=== PATIENT | female | born 1975 | race Caucasian/White ===

== ENCOUNTER 2024-09-30 10:49 | Emergency (ER) | payer OTHER, SELFPAY ==
--- NOTE | ~2024-09-30 | CT_ITS ---
EXAMINATION: CT ABDOMEN AND PELVIS WITHOUT CONTRAST CLINICAL INFORMATION: Left lower quadrant pain and tenderness. COMPARISON: None available. TECHNIQUE: Multidetector volumetric imaging was performed from the superior aspect of the liver through the pubic symphysis. Sagittal and coronal reformatted images were obtained on the technologist's workstation. This CT examination was performed using dose optimization techniques as appropriate, variously including the following: *Automated exposure control *Adjustment of mA and/or kV according to patient size (this includes techniques or standardized protocols for targeted exams where dose is matched to indication/reason for exam; i.e. extremities or head) *Use of iterative reconstruction technique FINDINGS: LUNG BASES: The visualized lung bases are unremarkable. There is a small type I hiatus hernia. LIVER, GALLBLADDER, AND BILIARY TREE: The unenhanced liver is normal in size, shape, and attenuation. No biliary ductal dilatation is present. In segment 8, there is a 1.5 x 1.5 cm hypoattenuating lesion, indeterminate. Remainder of the liver appears normal. The gallbladder is unremarkable with no evidence of radiopaque gallstones, gallbladder wall thickening, or obvious pericholecystic inflammatory changes. PANCREAS: Unremarkable. SPLEEN: Unremarkable. ADRENAL GLANDS: Unremarkable. KIDNEYS AND URETERS: The kidneys are normal in size, shape, and attenuation. No hydronephrosis, hydroureter, or calculi seen. No perinephric stranding. BLADDER: Unremarkable. GASTROINTESTINAL TRACT: The stomach is decompressed. The duodenum is normal. A small bowel is normal in caliber and course. No evidence of appendicitis. The colon is normal in caliber and course without wall thickening or inflammation. The rectum is normal. ABDOMINAL WALL: No significant hernia is appreciated. LYMPH NODES: Normal. VASCULAR: Unremarkable. PELVIC VISCERA: An IUD is present within a normal-appearing uterus. There are no adnexal abnormalities. OSSEOUS STRUCTURES: There is a levoconvex thoracolumbar scoliosis. There is no suspicious lytic or blastic bone lesion. CT/CT abdomen pelvis wo IV con IMPRESSION: 1. There are no acute findings in the abdomen or pelvis. 2. There is an indeterminate 1.5 x 1.5 cm hypoattenuating liver lesion in segment 8, for which a dynamic CT or MRI is recommended for definitive characterization. 3. There is a small type I hiatus hernia. 4. Additional ancillary findings as discussed in the body of the report. Electronically signed by: Kennedy Salgado MD 09/30/2024 04:46 PM EDT RP
[2024-09-30 11:02] VITALS: BP 134/79; PULSE 67; RESP 18; TEMP 36.6; O2SAT 98; BMI 29.2
--- NOTE | 2024-09-30 11:10 | ED.GENADULT ---
HPI - General Adult General Chief complaint: GI Bleed Stated complaint: Blood in Stool, diarrhea, Abd Pain Time Seen by Provider: 09/30/24 15:29 History of Present Illness ED Provider: Italia MATA narrative: The patient is a 49-year-old woman who says that for over a year she has been having episodes roughly once a month of abdominal discomfort. These episodes last for about 3 days in a row. She will often take Pepto-Bismol and other ugpu-veu-byvspnw remedies. She has been contemplating seeing a insurance risk surveyor because she wonders if she might have irritable bowel syndrome. Yesterday she had similar symptoms of discomfort in her left lower abdomen. This morning she says she had worsening discomfort and then passed a large amount of blood when she was trying to pass stool. She says that she called her PCP's office to request a referral to a insurance risk surveyor and she was advised to come to the emergency room. This episode of bloody stool was at around 08:30 this morning. She has not had a recurrence of any bloody stools since then. She continues to have some left lower quadrant abdominal pain. She says this discomfort is similar to the recurring episode she has been having for over a year. No fever, sweats, chills. No nausea or vomiting. The patient says that she has a history of hemorrhoids. She says that for a long time she occasionally has blood on her toilet paper when she wipes herself after a stool. She says that over the last couple of weeks this has become more mucousy than it used to be. Related Data Allergies Allergy/AdvReac Type Severity Reaction Status Date / Time Sulfa (Sulfonamide Allergy Rash Verified 09/30/24 11:05 Antibiotics) Review of Systems Review of Systems: Yes all other systems are reviewed and are negative ON LICENSE OF [facility] Social History Social History Alcohol intake: former Physical Exam ED Vital Signs: Vital Signs - 24 hr 09/30/24 11:02 09/30/24 16:43 09/30/24 17:32 Temperature 98 F 97.5 F 97.5 F Pulse Rate 67 61 61 Respiratory Rate 18 14 14 Blood Pressure 134/79 125/71 125/71 Pulse Oximetry 98 100 100 Oxygen Delivery Method Room Air Room Air Room Air BMI result Body Mass Index 29.2 Const Other: The patient is a 49-year-old woman who was awake, alert, pleasant, cooperative. She is well-groomed and well-kempt. She does not appear in distress. She is cheerful and looks well. Orientation/consciousness: patient oriented x3 HENMT Other: The face is symmetrical. ?Mucous membranes moist. Eyes Other: Pupils are round equal, conjunctivae are clear, extraocular movements intact Neck Neck: Yes normal visual inspection and Yes full ROM Resp Effort & Inspection: normal respiratory effort Auscultation: clear to auscultation bilaterally Cardio Rate: regular rate Rhythm: regular rhythm Heart sounds: S1 normal heart sound present and S2 normal heart sound present GI Other: The abdomen is flat and soft. There is some left lower quadrant tenderness. Skin Other: Skin is dry and unremarkable Neuro General: patient oriented x3, tone normal, moves all extremities, no focal motor deficits and CN's II-XI intact bilaterally Extrem Other: There is no calf swelling or tenderness. No asymmetry. No peripheral edema. Course Course Course Narrative: This is a Rapid Medical Examination (RME) performed by Sushant Parks PA-C in triage. Full HPI, ROS, assessment and treatment plan per primary provider in the Main ED. Hx: 49 yo F here w/ bloody mucousy stool x2 mo with copious bloody diarrhea today. assoc abd aches. taking motrin q6 hrs x days for neck pain. hx diverticluitis.: Plan: labs, OBS Medical Decision Making Medical Decision Making MDM Narrative: The patient is a 49-year-old female who is generally in fairly good health. She has asthma and is on an estrogen patch. She has a an IUD. She describes intermittent episodic abdominal symptoms occurring on an almost monthly basis for over a year. She also has a history of internal hemorrhoids. She has been having some bright red blood with passage of stool recently with an increasing degree of what she describes as mucus with a blood. Today she had 1 of these episodes of discomfort that she has been having episodically on a monthly basis and then has a large passage of bright red blood with stool at home this morning. She has had no ongoing bleeding in the emergency department. Her CBC is unremarkable. BNP is unremarkable. She may have a history of a reaction to IV contrast. She had some left lower quadrant tenderness. A CT of the abdomen and pelvis was done to evaluate this left lower quadrant tenderness, however it was done without IV contrast because of her history of a possible reaction to previous IV dye (she had apparently become short of breath). The CT without IV contrast shows no acute findings, specifically no colonic inflammatory changes. There is an incidental finding of a small lesion in the liver of uncertain significance which can be worked up as an outpatient. Overall my impression is that the patient seems quite well. She looks well. Her vital signs are unremarkable. Her labs are unremarkable. The CT scan does not show any acute findings. She has had no ongoing bleeding. I think the patient may be discharged to follow up with Gastroenterology. She should stop using ibuprofen which she has been taking for musculoskeletal pains. She was also advised to see an operations support specialist to discuss whether she has a true IV contrast allergy. Lab Data 09/30/24 11:29 09/30/24 11:29 Labs: Lab Results 09/30/24 Range/Units 11:29 WBC 6.0 (4.8-10.8) X10*3/uL RBC 4.72 (4.20-5.50) X10*6/uL Hgb 14.5 (12.0-16.0) g/dl Hct 43.4 (37.0-47.0) % MCV 91.9 (80.0-98.0) fL MCH 30.7 (27.0-33.0) pg MCHC 33.4 (31.0-35.0) g/dl RDW 12.8 (11.0-16.0) % Plt Count 220 (160-400) X10*3/uL MPV 11.3 (9.4-12.3) fL Immature Gran % (Auto) 0.3 (0.0-0.4) % Neut % (Auto) 69.6 (45-73) % Lymph % (Auto) 19.9 L (20-40) % Levy % (Auto) 8.7 (2-11) % Eos % (Auto) 0.8 (0-4) % Baso % (Auto) 0.7 (0-2) % Lymph # (Auto) 1.2 (1.2-4.9) X10*3/uL Levy # (Auto) 0.5 (0.1-1.2) X10*3/uL Eos # (Auto) 0.1 (0.0-0.4) X10*3/uL Baso # (Auto) 0.0 (0.0-0.2) X10*3/uL Abs Immat Gran (auto) 0.02 (0.00-0.03) X10*3/uL Absolute Neuts (auto) 4.2 (2.0-8.3) x10*3/uL Absolute Nucleated RBC 0.000 (0.0-0.012) X10*3/uL Nucleated RBC % (auto) 0.0 (0.0-0.2) /100WBC Sodium 140 (135-145) mmol/L Potassium 4.3 (3.3-5.1) mmol/L Chloride 108 (96-108) mmol/L Carbon Dioxide 25 (22-29) mmol/L Anion Gap 11 L (12-20) BUN 11 (9-16) mg/dL Creatinine 0.85 (0.5-1.4) mg/dL Estim Creat Clear Calc 78.6 Estimated GFR > 60 Random Glucose 92 (60-115) mg/dL Calcium 9.2 (8.4-10.2) mg/dL Magnesium 2.2 (1.6-2.6) mg/dL Total Bilirubin 1.7 H (0.0-1.0) mg/dL Direct Bilirubin 0.4 (0.0-0.5) mg/dL AST 23 (5-31) U/L ALT 19 (0-31) U/L Alkaline Phosphatase 46 (39-117) U/L C-Reactive Protein 0.21 (< or = 0.50) mg/dL Total Protein 7.2 (6.5-8.0) g/dL Albumin 4.6 (3.5-5.0) g/dL Lipase 33 (8-78) U/L Discharge Plan Discharge Clinical Impression: Bright red blood per rectum, Left lower quadrant abdominal pain, Lesion of liver Patient Disposition: Home, Self-Care Additional Instructions: Your testing in the emergency room today seems very reassuring. You have normal blood counts on your CBC. Your chemistries are likewise unremarkable. The CAT scan of your abdomen and pelvis does not show any acute findings. Specifically the colon does not show any obvious signs of inflammation. This CAT scan is limited by the lack of IV contrast but there are no obvious signs of any acute problem. There was an incidental finding of a 1.5 cm x 1.5 cm the patient in your liver of uncertain significance. This can be followed up with the an outpatient CAT scan or MRI. The bleeding you experienced might be coming from internal hemorrhoids. I think that is probably the most likely source. If you are able to avoid using ibuprofen (Motrin) or other nonsteroidal anti-inflammatories that may be wilson. You may continue to use acetaminophen (Tylenol) as needed for musculoskeletal discomfort. Please plan on following up with your insurance risk surveyor. I would recommend contacting your doctor tomorrow for referral back to your insurance risk surveyor. Return to the emergency room if significantly worse. Referrals: Tung Shields MD [Physician, Gastroenterology] Gildardo Orellana MD [Primary Care Provider, Internal Medicine] Interventions: ED Discharge Assessment Last Done: 09/30/24 17:32 Discharge Date/Time: 09/30/24 17:32 Print Language: Bhutanese
[2024-09-30 11:35] LABS: MANUAL DIFF FLAG NO
[2024-09-30 11:38] LABS: Hematocrit 43.4 % (37.0-47.0); Hemoglobin 14.5 g/dl (12.0-16.0); Imm Gran Abs Auto 0.02 X10*3/uL (0.00-0.03); Imm Gran Pct Auto 0.3 % (0.0-0.4); Lymphocytes Absolute Auto 1.2 X10*3/uL (1.2-4.9); Mean Corpuscular HGB Conc 33.4 g/dl (31.0-35.0); Mean Corpuscular Hemoglobin 30.7 pg (27.0-33.0); Mean Corpuscular Volume 91.9 fL (80.0-98.0); NRBC Abs Auto 0.000 X10*3/uL (0.0-0.012); NRBC Pct Auto 0.0 /100WBC (0.0-0.2); Platelet Count 220 X10*3/uL (160-400); Red Blood Count 4.72 X10*6/uL (4.20-5.50); White Blood Count 6.0 X10*3/uL (4.8-10.8)
[2024-09-30 11:58] LABS: Alanine Aminotransferase 19 U/L (0-31); Albumin Level 4.6 g/dL (3.5-5.0); Alkaline Phosphatase 46 U/L (39-117); Anion Gap 11 (12-20); Aspartate Amino Transferase 23 U/L (5-31); Blood Urea Nitrogen 11 mg/dL (9-16); Calcium 9.2 mg/dL (8.4-10.2); Carbon Dioxide 25 mmol/L (22-29); Chloride 108 mmol/L (96-108); Creatinine Clr Calc Pharmacy 78.6; Estimated Glomerular Filt Rate > 60; Lipase 33 U/L (8-78); Magnesium 2.2 mg/dL (1.6-2.6); Potassium 4.3 mmol/L (3.3-5.1); Sodium 140 mmol/L (135-145); Total Protein 7.2 g/dL (6.5-8.0)
--- OUTSIDE RECORDS SUMMARY | 2024-09-30 16:13 | XMS_ITS | Clinical Summary ---
Author Organization [facility] Address [address] [address] Phone Care Team Providers Care Lock Plater Name Role Phone Gildardo Orellana MD Primary Care Provider Allergies Active Allergy Reactions Criticality Noted Date Comments Benzonatate 09/20/2022 Ciprofloxacin Other (See Comments) 10/21/2001 Rash Codeine Mental Status Change 10/21/2001 Fluconazole 09/20/2022 Other reaction(s): DIZZY,AGITATED Fluoxetine Other (See Comments) 10/21/2001 acathesia; Original Allergen: (DO NOT USE) - SSRI's Levalbuterol Hcl 09/20/2022 Loratadine Other (See Comments) 10/21/2001 heart racing Prochlorperazine Other (See Comments) High 10/21/2001 acathesia Other reaction(s): MUSCLE WEAKNESS Sulfa (Sulfonamide Antibiotics) Other (See Comments) 10/21/2001 Rash Medications albuterol 90 mcg/actuation inhaler 3 Active FLOVENT HFA 110 mcg/actuation inhaler 3 Active estradioL (VIVELLE-DOT) 0.0375 mg/24 hr APPLY 1 PATCH TRANSDERMALLY TWICE A WEEK 5 Active Medication-Ethan e TextIndication s:Lileha IUD Indications: Lileha IUD Active Family History Medical History Relation Comments Cancer Father Heart disease Father Prostate cancer Father Colon cancer Maternal Grandmother Thyroid disease Mother Relation Status Comments Father Alive Maternal Grandmother (Age 83) Mother Alive Social History Tobacco Use Types Packs/Day Years Used Date Smoking Tobacco: Never Smokeless Tobacco: Never Alcohol Use Standard Drinks/Week Comments Not Currently 0 (1 standard drink = 0.6 oz pur e alcohol) Education Answer Date Recorded Are you interested in more education? Not on leatha e 07/09/2022 Are you concerned about learning? Not on file 07/09/2022 No 07/09/2022 No 07/09/2022 Digital Access Answer Date Recorded No 07/22/2022 No 07/22/2022 Reliable internet access at home? Not on file 07/22/2022 Device with a working camera? Not on file Intimate Partner Violence Answer Date R ecorded Are you denied basic needs s uch as food, clothing, or medical care? No 09/25/2022 In the past 12 months have y ou been in a relationship with a person who hurts, threatens, or tries to control you? No 09/25/2022 Are you denied basic needs s uch as food, clothing, or medical care? No 09/25/2022 In the past 12 months have y ou been in a relationship with a person who hurts, threatens, or tries to control you? No 09/25/2022 Comments No Sex and Gender Information Value Date Recorded Sex Assigned at Female 09/24/2023 9:29 AM EDT Legal Sex Female 6:41 PM EST Gender Identity Female 09/24/2023 9:29 AM EDT Sexual Orientation Straight 09/24/2023 9: 30 AM EDT Last Filed Vital Signs Vital Sign Reading Time Taken Comments Blood Pressure 121/70 06/08/2024 9:03 AM EDT Pulse 62 06/08/2024 9:03 AM EDT Temperature 36.6 C (97.8 F) 09/25/2022 8:02 AM EDT Respiratory Rate 27 09/25/2022 8:20 AM EDT Oxygen Saturation 97% 09/25/2022 8:20 AM EDT Inhaled Oxygen Concentration - - Weight 80.1 kg (176 lb 9.6 oz) 06/08/2024 9:03 A M EDT Height 164.5 cm (5' 4.75 ) 06/08/2024 9:03 AM ED T Body Mass Index 29.62 06/08/2024 9:03 AM EDT Plan of Treatment Upcoming Encounters Date Type Department Care Team (Latest Contact Info) Description 04/05/2025 9:00 AM EST Office Visit [facility] Plastic Surgery [address] [place] [phone] Chepe Garcia MD [address] [place] [phone] 04/20/2025 Procedure Pass OR Admitting Dept - Virtual Department [address] [place] [phone] 04/20/2025 11:16 AM EST Hospital Encounter OR Admitting Dept - Virtual Department [address] [place] [phone] Chepe Garcia MD [address] [place] [phone] 04/20/2025 11:16 AM EST - 04/20/2025 3:26 PM EST Surgery OR Admitting Dept - Virtual Department [address] [place] [phone] Chepe Garcia MD [address] [place] [phone] ABDOMINOPLASTY MINI 04/26/2025 9:00 AM EST Office Visit [facility] Plastic Surgery [address] [place] [phone] Mirlande Ragland PA-C [address] [place] [phone] 05/03/2025 9:30 AM EDT Office Visit [facility] Plastic Surgery [address] [place] [phone] Mirlande Ragland PA-C [address] [place] [phone] Scheduled Procedures Name Priority Associated Diagnoses Date/Ti me ABDOMINOPLASTY MINI pannus, abdomen 04/20/2025 11:16 AM EST LIPOSUCTION pannus, abdomen 04/20/2025 11:16 AM EST Health Maintenance Due Date Last Done Comments Adult Td,Tdap Booster 1975 LIPID PANEL 1975 DEPRESSION SCREENING 1985 HEPATITIS C SCREENING 05/05/1991 HIV ONE-TIME SCREENING (18-65 YEARS) 05/05/1991 PAP SMEAR 1994 SCREENING FOR DIABETES 2008 MAMMOGRAM 2013 COLOGUARD 2018 FIT TEST 2018 FOBT 2018 SIGMOIDOSCOPY 2018 VIRTUAL COLONOSCOPY 2018 PNEUMOCOCCAL VACCINES (50+ years) (1 of 1 - PCV) 05/05/2023 ZOSTER VACCINES (1 of 2) 05/05/2023 COVID-19 VACCINE ( season) 2023 12/30/2021, 12/02/2020, 10/26/2020, Additional history exists COLONOSCOPY 09/25/2032 09/25/2022 COLORECTAL CANCER SCREENING 09/25/2032 SMOKING STATUS SCREENING (Once After 26 Yrs) Completed 06/08/2024 HEPATITIS A VACCINES Aged Out No long er eligible based on patient's age to complete this topic HIB VACCINES Aged Out No longer eligi ble based on patient's age to complete this topic MENINGOCOCCAL VACCINES (ACWY) Aged Out No longer eligible based on patient's age to complete this topic MENINGOCOCCAL VACCINES (B) Aged Out N o longer eligible based on patient's age to complete this topic Medical Devices Not on file Procedures Procedure Name Priority Date/Time Associated Diagnosis Comments ENDOSCOPY, COLON 09/25/2022 8:00 AM EDT from Last 3 Months or Most Recently Relevant to Health Maintenance Results * ENDOSCOPY, COLON (09/25/2022 8:00 AM EDT) Narrative Transcriptions Tung Aranda MD - 09/25/2022 8:00 AM EDT [facility] Patient Name: Ana Chappell Attending MD:: TUNG ARANDA MD, , Procedure Date: 09/25/2022 8:00 AM Date of : 1975 Age: 47 Admit Type: Outpatient Gender: Female Room: [place] [address] Referring MD: Eduardo Orellana MD Exam Type: Colonoscopy Indications: Screening for colorectal malignant neoplasm Medications: Monitored Anesthesia Care Procedure: Informed consent was obtained from the patientafter discussion of the indications, limitations, alternatives, benefits, and risks of the procedure. Risks specifically discussed include but are not limited to medication reactions, missed lesions, bleeding, perforation, or the need for emergent surgery. Throughout the procedure, the patient's blood pressure, pulse, end-tidal CO2, and oxygensaturations were monitored continuously. The Olympus pediatric variable colonoscopePCF-[id number] #4 was introduced through the anus and advanced tothe cecum, identified by appendiceal orifice andileocecal valve. The colonoscopy was performed without difficulty. The patient tolerated the procedurewell. The quality of the bowel preparation was excellent. The quality of the bowel preparation was evaluated using the BBPS ([place] Bowel Preparation Scale)with scores of: Right Colon = 3, Transverse Colon = 3and Left Colon = 3 (entire mucosa seen well with no residual staining, small fragments of stool oropaque liquid). The total BBPS score equals 9. Anatomical landmarks were photographed. Complications: No immediate complications. Estimated blood loss:None. Findings: The perianal and digital rectal examinations were normal. Internal hemorrhoids were found duringretroflexion. The hemorrhoids were mild. The exam was otherwise normal throughout theexamined colon. Impression: - Internal hemorrhoids. - No specimens collected. Recommendation: - Discharge patient to home. - Repeat colonoscopy in 10 years for screening purposes. TUNG ARANDA MD, 09/25/2022 8:07:41 AM This report has been signed electronically. Number of Addenda: 0 Note Initiated On: 09/25/2022 6:54 AM Procedure Code(s): --- Professional --- 40200, Colonoscopy, flexible; diagnostic, including collection of specimen(s) by brushing or washing, when performed (separateprocedure) --- Technical --- 99831, Colonoscopy, flexible; diagnostic, including collection of specimen(s) by brushing or washing, when performed (separateprocedure) Diagnosis Code(s): --- Professional --- Z12.11, Encounter for screening for malignantneoplasm of colon K64.8, Other hemorrhoids --- Technical --- Z12.11, Encounter for screening for malignantneoplasm of colon K64.8, Other hemorrhoids CPT copyright 2021 [employer]. All rights reserved. The codes documented in this report are preliminary and upon restorative rehab aide reviewmay be revised to meet current compliance requirements. Procedure Date: 09/25/2022 8:00:[address] [place] [phone] Gildardo Orellana MD GI PROCEDURE ORDERABLES Final Result from Last 3 Months or Most Recently Relevant to Health Maintenance Insurance [facility] [place] [address] [place] [address] [place] [facility] [place] [address] [place] [address] [facility] Care Teams Lock Plater Relationship Specialty Start Date End Date Gildardo Orellana MD [address] [place] [phone] PCP - General 09/25/22 Additional Source Comments The information contained in this document represents components of the legal health record. It is not the complete legal health record.[facility]
--- OUTSIDE RECORDS SUMMARY | 2024-09-30 16:13 | XMS_ITS | Patient Health Record ---
[facility] Address [address] [place] [address] Care Team Providers Care Film Librarian Name Role Phone Bart Little Unavailable [phone] Allergies Allergen (clinical drug ingredient) Drug/Non Drug Allergy documented on EMR Reaction Allergy Type Onset Date Status ciprofloxacin Cipro Unknown Drug Allergy Act radha Levaquin Unknown Drug Allergy Active sulfa Unknown Drug Allergy Active Reason For Referral No Information Problems Problem Type SNOMED Code ICD Code Onset Dates Problem Status W/U Status Risk Notes Problem Onychomycosis (431107572) Onychomycosis (110.1) Active confirmed Problem Pain in limb (10548979) Pain in Limb (729.5) Active confirmed Problem Ingrowing nail (599128947) Ingrowing Nail (703.0) Active confirmed Plan Of Treatment Pending Test Test Name Order Date 15133-Hrdthkqi Plate 10/17/2011 Insurance Providers Payer Name Payer Address Payer Phone Subscriber Number Group Number Insured Name Patient Relationship to Insured Coverage Start Date Coverage End Date [facility] [address] [place] [address] [id number] CHAPPELL Self - patient is the insured Medical (General) History Medical History History ICD Code reflux
[2024-09-30 16:43] VITALS: BP 125/71; PULSE 61; RESP 14; TEMP 36.4; O2SAT 100
[2024-09-30 17:32] VITALS: BP 125/71; PULSE 61; RESP 14; TEMP 36.4; O2SAT 100
== END 2024-09-30 17:32 | disposition home or self-care (01) ==
PROVIDERS: Physician Assistant Medical; Emergency Provider Emergency Medicine; PCP Internal Medicine
DX: K92.1 Melena (principal); R10.32 Left lower quadrant pain; K76.9 Liver disease, unspecified; Z79.899 Other long term (current) drug therapy
CPT/HCPCS: 36415; 74176; 80053; 82248; 83690; 83735; 85025; 86140; 99284

== ENCOUNTER → 2024-09-30 15:41 | Outpatient (BNV) | payer OTHER, SELFPAY | PROVIDERS: Emergency Provider Emergency Medicine; PCP Internal Medicine; Visit Provider Radiology Diagnostic Radiology | DX: K44.9 Diaphragmatic hernia without obstruction or gangrene (principal) | CPT/HCPCS: 74176 ==